=== PATIENT | male | born 1980 | race Caucasian/White ===

== ENCOUNTER 2018-08-30 08:57 | Emergency (ER) | payer MEDICAID ==
[2018-08-30] MEDS: KETOROLAC 60 MG INJ IM (10:31)
[2018-08-30] MEDS: METHYLPREDNISOLONE 125 MG INJ IM (10:31)
== END 2018-08-30 11:53 | disposition home or self-care (01) ==
LOC: FTE 08:57
DX: M54.41 Lumbago with sciatica, right side (principal)
CPT/HCPCS: 72100; 96372; 99284-25

== ENCOUNTER 2019-02-14 19:34 | Emergency (ER) | payer MEDICAID ==
[2019-02-14 20:23] LABS: URINE BLOOD (Dip) POC Trace-intact (NEGATIVE); URINE GLUCOSE (Dip) POC Negative (NEGATIVE); URINE KETONES (Dip) POC Trace (NEGATIVE); URINE LEUKOCYTE EST (Dip) POC Negative (NEGATIVE); URINE NITRITE (Dip) POC Negative (NEGATIVE); URINE TOTAL PROTEIN POC Negative (NEGATIVE)
[2019-02-14] MEDS: HYDROCODONE/APAP (10/325) TAB PO (20:41)
[2019-02-14] MEDS: KETOROLAC 60 MG INJ IM (20:44)
== END 2019-02-14 22:38 | disposition home or self-care (01) ==
LOC: FTE 19:34
DX: M54.5 Low back pain (principal)
CPT/HCPCS: 81003; 96372; 99284-25